=== PATIENT | female | born 1950 | race Caucasian/White ===

== ENCOUNTER 2019-12-17 08:20 | Day surgery (SDC) | payer OTHER, BC ==
[2019-12-16 13:32] VITALS: BMI 32.1
[2019-12-17 10:21] VITALS: TEMP 97.7
[2019-12-17 11:11] VITALS: BP 120/69; PULSE 61
--- NOTE | 2019-12-20 16:50 | PATH ---
Surgical Pathology Report Patient Name: PHOEBE CUEVAS [facility]. Rec. #: [id number] /Age/Gender: 1950 (Age: 69) / F Account: [id number] Location: [facility]-ENDOS[facility] Taken: 12/17/2019 Received: 12/17/2019 Reported: 12/20/2019 Physicians: Brooks Diamond M.D. Specimen(s) Received A: SECOND PORTION DUODENUM AND DUODENAL BULB B: ANTRUM C: GE JUNCTION Clinical History Heartburn, dyspepsia Postoperative diagnosis: Hiatal hernia, GERD Final Diagnosis A. SECOND PORTION DUODENUM AND BULB, BIOPSY: DUODENAL MUCOSA WITH FOCAL CHRONIC NONSPECIFIC DUODENITIS AND MILD ACUTE INFLAMMATION. NO HISTOLOGIC EVIDENCE OF INTRAEPITHELIAL LYMPHOCYTOSIS. B. ANTRUM, BIOPSY: GASTRIC MUCOSA WITH ACTIVE CHRONIC GASTRITIS. IMMUNOSTAIN FOR H. PYLORI IS POSITIVE. NEGATIVE FOR INTESTINAL METAPLASIA. C. GE JUNCTION, BIOPSY: ESOPHAGEAL (SQUAMOUS) MUCOSA WITH REFLUX ESOPHAGITIS. NO COLUMNAR EPITHELIUM PRESENT. Electronically Signed Ruthie Duffy M.D. Gross Description A. Received in formalin, labeled "biopsy second portion of duodenum and duodenal bulb" are 6 loera, irregular portions of soft tissue ranging from 0.1-0.6 cm. in greatest dimension. The specimens are submitted in toto in one cassette. B. Received in formalin, labeled "biopsy antrum" are 4 loera, irregular portions of soft tissue ranging from 0.2-0.4 cm. in greatest dimension. The specimens are submitted in toto in one cassette. C. Received in formalin, labeled "biopsy EG junction" are 2 loera, irregular portions of soft tissue averaging 0.5 cm. in greatest dimension. The specimens are submitted in toto in one cassette. DL/12/17/2019 saudi/12/17/2019
== END 2019-12-17 13:10 | disposition home or self-care (01) ==
LOC: JASU-ENDO 08:20
PROVIDERS: ATTEND Internal Medicine Gastroenterology
PROC: 0DB68ZX Excision of Stomach, Via Natural or Artificial Opening Endoscopic, Diagnostic (ICD-10-PCS; 2019-12-17)
PROC: 0DB28ZX Excision of Middle Esophagus, Via Natural or Artificial Opening Endoscopic, Diagnostic (ICD-10-PCS; 2019-12-17)
PROC: 0DB38ZX Excision of Lower Esophagus, Via Natural or Artificial Opening Endoscopic, Diagnostic (ICD-10-PCS; 2019-12-17)
PROC: 0DB98ZX Excision of Duodenum, Via Natural or Artificial Opening Endoscopic, Diagnostic (ICD-10-PCS; principal; 2019-12-17 08:45)
DX: R13.10 Dysphagia, unspecified (principal); K21.0 Gastro-esophageal reflux disease with esophagitis; K44.9 Diaphragmatic hernia without obstruction or gangrene; K29.80 Duodenitis without bleeding
CPT/HCPCS: 88305-TC; 88342-TC